=== PATIENT | female | born 1955 | race Caucasian/White ===

== ENCOUNTER 2020-04-29 15:47 | Emergency (ER) | payer BC, OTHER ==
[~2020-04-29] VITALS: Ht 160 cm; Wt 65.1 kg
[~2020-04-29 15:47] MED LIST: ACET65TA; ALBU17IN2; ALLE25CA; COUM1TAB18; DARV100T10; MELOPOW; PERC5TAB8; PROZ40CA; SIMV40TA2; ZETI10TA; ZOCO20TA
[2020-04-29] MEDS ORDERED: ASPI81CH33 PO (15:58)
[2020-04-29] MEDS ORDERED: ALEV220T22 PO (15:58)
[2020-04-29] MEDS ORDERED: BENA25CA4 PO (15:58)
[2020-04-29] MEDS ORDERED: diazePAM 5MG TABLET PO ONE (17:15)
[2020-04-29] MEDS ORDERED: LIDOCAINE 4% CREAM 5GM (LMX4) TOP ONE (17:15)
[2020-04-29] MEDS ORDERED: KETOROLAC 60MG 2ML VIAL IM ONE (17:45)
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
[2020-04-29] MEDS ORDERED: ROBA750T4 PO (18:54)
[2020-04-29] MEDS ORDERED: ANEC4CRE3 TOP (18:54)
[2020-04-29 19:05] VITALS: BP 157/86
== END 2020-04-29 19:08 | disposition home or self-care (01) ==
LOC: M ED 15:47
DX: S16.1XXA Strain of muscle, fascia and tendon at neck level, initial encounter (principal); V49.40XA Driver injured in collision with unspecified motor vehicles in traffic accident, initial encounter; Y92.9 Unspecified place or not applicable; Y93.9 Activity, unspecified; Y99.9 Unspecified external cause status; E78.5 Hyperlipidemia, unspecified; M43.12 Spondylolisthesis, cervical region; M48.061 Spinal stenosis, lumbar region without neurogenic claudication; J45.909 Unspecified asthma, uncomplicated; Z88.1 Allergy status to other antibiotic agents; Z88.2 Allergy status to sulfonamides; Z88.6 Allergy status to analgesic agent
CPT/HCPCS: 70450; 72125; 72128; 72131; 96372; 99283; J1885

== ENCOUNTER 2023-12-27 16:08 | Emergency (ER) | payer MEDICARE, OTHER ==
[~2023-12-27] VITALS: Ht 160 cm; Wt 63.6 kg
[~2023-12-27 16:08] MED LIST changes: +ALEV220T22 PO; +ANEC4CRE3 TOP; +ASPI81CH33 PO; +BENA25CA4 PO; +ROBA750T4 PO
[2023-12-27] MEDS ORDERED: MELO7.5T35 PO (19:20)
[2023-12-27] MEDS: traMADol 50 MG TAB PO ONE (19:29)
[2023-12-27 19:30] VITALS: BP 157/83; TEMP 98.4; O2SAT 98
== END 2023-12-27 19:32 | disposition home or self-care (01) ==
LOC: M ED 16:08
DX: M17.11 Unilateral primary osteoarthritis, right knee (principal); Z88.2 Allergy status to sulfonamides; Z88.8 Allergy status to other drugs, medicaments and biological substances; Z79.1 Long term (current) use of non-steroidal anti-inflammatories (NSAID); Z79.899 Other long term (current) drug therapy

== ENCOUNTER 2024-01-17 08:48 | Emergency (ER) | payer MEDICARE ==
[~2024-01-17] VITALS: Ht 160 cm; Wt 63.8 kg
[~2024-01-17 08:48] MED LIST changes: +MELO7.5T35 PO
[2024-01-17 10:22] LABS: BASO % 0.2 % (0.0-1.0); HEMATOCRIT 39.7 % (36.0-47.0); HEMOGLOBIN 14.1 g/dl (12.0-15.5); LYMPH # 1.6 10^3/uL (1.5-5.0); LYMPH % 12.9 % (24.0-44.0); MEAN CORPUSCULAR HEMOGLOBIN 31.9 pg (27.0-33.0); MEAN CORPUSCULAR HGB CONC 35.5 g/dl (32.0-36.5); MEAN CORPUSCULAR VOLUME 89.8 fl (80.0-96.0); MONO # 1.7 10^3/uL (0.0-0.8); MONO % 13.5 % (2.0-8.0); NEUTROPHILS % 72.8 % (36.0-66.0); PLATELET COUNT, AUTOMATED 240 10^3/uL (150-450); RED BLOOD COUNT 4.42 10^6/uL (4.00-5.40); WHITE BLOOD COUNT 12.4 10^3/uL (4.0-10.0)
[2024-01-17 10:37] LABS: INR 1.18; PARTIAL THROMBOPLASTIN TIME 28.2 SECONDS (24.8-34.2); PROTHROMBIN TIME 14.7 SECONDS (12.5-14.5)
[2024-01-17] MEDS ORDERED: ISOVUE-370 76% 100ML VIAL As Ordered ONE (10:39)
[2024-01-17] MEDS ORDERED: LIDO1CRE2 TOP (10:40)
[2024-01-17] MEDS ORDERED: ASPI81TA26 PO (10:40)
[2024-01-17] MEDS ORDERED: TUMERIC (10:40)
[2024-01-17] MEDS ORDERED: CRAN500C11 PO (10:40)
[2024-01-17] MEDS ORDERED: MULTTAB61 PO (10:40)
[2024-01-17] MEDS ORDERED: TUME1CAP PO (10:41)
[2024-01-17 10:44] LABS: LIPASE 31 U/L (12-53)
[2024-01-17] MEDS ORDERED: HOME MED LIST COMPLETE! XX SCH (10:45)
[2024-01-17 10:46] LABS: ALBUMIN 3.1 G/DL (3.2-5.2); ALKALINE PHOSPHATASE 103 U/L (46-116); ALT/SGPT 21 U/L (7.0-40); AST/SGOT 26 U/L (<34); BILIRUBIN,DIRECT 0.2 MG/DL (<0.4); BILIRUBIN,TOTAL 0.4 MG/DL (0.3-1.2); BLOOD UREA NITROGEN 15 MG/DL (9-23); CALCIUM LEVEL 8.8 MG/DL (8.3-10.6); CARBON DIOXIDE LEVEL 23 MMOL/L (20-31); CHLORIDE LEVEL 102 MMOL/L (98-107); CK-MB VALUE MASS < 1.0 NG/ML (<3.6); CREATININE FOR GFR 0.74 MG/DL (0.55-1.30); GLOMERULAR FILTRATION RATE > 60.0 (>45); GLUCOSE, FASTING 104 MG/DL (74-106); POTASSIUM SERUM 3.6 MMOL/L (3.5-5.1); SODIUM LEVEL 133 MMOL/L (136-145); TOTAL PROTEIN 6.9 G/DL (5.7-8.2)
[2024-01-17 10:48] LABS: THYROID STIMULATING HORMONE 1.263 uIU/ML (0.55-4.78)
[2024-01-17 10:52] LABS: CPK CREATINE PHOSPHOKINASE 81 U/L (34-145); MB/CK RELATIVE INDEX 1.23 (< OR =4)
[2024-01-17] MEDS: NS 1,000 ML IV ONE (11:25)
[2024-01-17 11:36] LABS: CK-MB VALUE MASS < 1.0 NG/ML (<3.6)
[2024-01-17 11:43] LABS: CPK CREATINE PHOSPHOKINASE 84 U/L (34-145); MB/CK RELATIVE INDEX 1.19 (< OR =4)
[2024-01-17] MEDS: IBUPROFEN 600MG TAB PO ONE (12:57)
[2024-01-17] MEDS: CIPROFLOXACIN 400 MG in IV 1 EA IV ONE (12:57)
[2024-01-17] MEDS: metroNIDAZOLE 500 MG in IV 1 EA IV ONE (13:15)
[2024-01-17 13:46] LABS: RSV AMPLIFICATION NEGATIVE (NEGATIVE)
[2024-01-17] MEDS: NS 1,000 ML IV STA (14:32)
[2024-01-17] MEDS ORDERED: METR-265 PO (15:29)
[2024-01-17] MEDS ORDERED: CIPR-249 PO (15:29)
[2024-01-17 15:45] VITALS: BP 138/68; TEMP 99.6; O2SAT 97
== END 2024-01-17 15:50 | disposition home or self-care (01) ==
LOC: M ED 08:48
DX: R00.2 Palpitations (principal); K57.92 Diverticulitis of intestine, part unspecified, without perforation or abscess without bleeding; N39.0 Urinary tract infection, site not specified; F32.A Depression, unspecified; Z88.2 Allergy status to sulfonamides; Z88.8 Allergy status to other drugs, medicaments and biological substances; Z79.1 Long term (current) use of non-steroidal anti-inflammatories (NSAID); Z79.2 Long term (current) use of antibiotics; Z79.810 Long term (current) use of selective estrogen receptor modulators (SERMs); Z79.899 Other long term (current) drug therapy
CPT/HCPCS: 71045; 71275; 74177; 80047; 80048; 80076; 81001; 82550; 82553; 83605; 83690; 84439; 84443; 84484; 85025; 85610; 85730; 87088; 87186; 87631; 93005; 93041; 94760; 96360; 96361; 96365; 96366; 99285; J0744; J1836; Q9967

== ENCOUNTER → 2024-04-13 | Outpatient (REF) | payer MEDICARE ==
[~2024-04-13] MED LIST changes: +ASPI81TA26 PO; +CIPR-249 PO; +CVS500CA5 PO; +LIDO4CRE12 TOP; +METR-265 PO; +MULTTAB61 PO; +TUME1CAP PO; +TUMERIC
[2024-04-13 18:46] LABS: FERRITIN 35.4 NG/ML (7.3-270.7)
[2024-04-13 18:47] LABS: RHEUMATOID FACTOR QUANT 7.9 IU/ML (<14)
[2024-04-13 18:48] LABS: PERCENT SATURATION 19.1 % (13.2-45.0)
== END ==
LOC: M LAB REF 17:31
PROVIDERS: ATTEND Internal Medicine
DX: R23.1 Pallor (principal); M25.50 Pain in unspecified joint

== ENCOUNTER → 2024-04-16 | Outpatient (CLI) | payer MEDICARE | LOC: M WUC 12:03 | PROVIDERS: ATTEND Internal Medicine | DX: M19.012 Primary osteoarthritis, left shoulder (principal); M25.512 Pain in left shoulder ==

== ENCOUNTER 2024-04-21 17:23 | Emergency (ER) | payer MEDICARE ==
[~2024-04-21] VITALS: Ht 160 cm; Wt 65.1 kg
[2024-04-21] MEDS ORDERED: OSTE1TAB2 PO (17:38)
[2024-04-21] MEDS ORDERED: ZINC220CA PO (17:38)
[2024-04-21] MEDS ORDERED: MELO7.5T35 (17:38)
[2024-04-21] MEDS ORDERED: FLUTISP (17:38)
[2024-04-21] MEDS ORDERED: PRED10TA2 (17:38)
[2024-04-21] MEDS ORDERED: METH-1165 PO (20:29)
[2024-04-21] MEDS ORDERED: IBUP-1022 PO (20:29)
[2024-04-21] MEDS: IBUPROFEN 600MG TAB PO ONE (20:40)
[2024-04-21] MEDS: methocarbamoL 750 MG TAB PO ONE (20:40)
[2024-04-21 20:43] VITALS: BP 136/68; TEMP 98; O2SAT 100
== END 2024-04-21 20:46 | disposition home or self-care (01) ==
LOC: M ED 17:23
DX: S39.012A Strain of muscle, fascia and tendon of lower back, initial encounter (principal); M51.360 Other intervertebral disc degeneration, lumbar region with discogenic back pain only; Y92.9 Unspecified place or not applicable; Y93.9 Activity, unspecified; Y99.9 Unspecified external cause status; Z88.2 Allergy status to sulfonamides; Z88.8 Allergy status to other drugs, medicaments and biological substances; Z79.1 Long term (current) use of non-steroidal anti-inflammatories (NSAID); Z79.52 Long term (current) use of systemic steroids; Z79.810 Long term (current) use of selective estrogen receptor modulators (SERMs); Z79.899 Other long term (current) drug therapy

== ENCOUNTER 2024-07-03 15:40 | Emergency (ER) | payer MEDICARE ==
[~2024-07-03] VITALS: Ht 160 cm; Wt 66.2 kg
[~2024-07-03 15:40] MED LIST changes: +FLUTISP; +IBUP-1022 PO; +MELO7.5T35; +METH-1165 PO; +OSTE1TAB2 PO; +PRED10TA2; +ZINC220CA PO
[2024-07-03 19:22] LABS: BASO # 0.1 10^3/uL (0.0-0.2); BASO % 0.6 % (0.0-1.0); EOS # 0.1 10^3/uL (0.0-0.5); EOS % 1.3 % (0.0-3.0); HEMOGLOBIN 14.4 g/dl (12.0-15.5); LYMPH # 3.5 10^3/uL (1.5-5.0); LYMPH % 32.4 % (24.0-44.0); MEAN CORPUSCULAR HEMOGLOBIN 30.9 pg (27.0-33.0); MEAN CORPUSCULAR HGB CONC 33.5 g/dl (32.0-36.5); MEAN CORPUSCULAR VOLUME 92.3 fl (80.0-96.0); MONO # 0.7 10^3/uL (0.0-0.8); MONO % 6.8 % (2.0-8.0); NEUTROPHILS # 6.3 10^3/uL (1.5-8.5); NEUTROPHILS % 58.6 % (36.0-66.0); PLATELET COUNT, AUTOMATED 333 10^3/uL (150-450); RED BLOOD COUNT 4.66 10^6/uL (4.00-5.40); WHITE BLOOD COUNT 10.8 10^3/uL (4.0-10.0)
[2024-07-03 19:22] LABS: KETONE, URINE AUTO RFX NEGATIVE (NEGATIVE); NITRITE, URINE AUTO RFX NEGATIVE (NEGATIVE); RBC, URINE AUTO RFX 0 /HPF (0-3); SQUAM EPITHELIAL CELL UR AURFX 2 /HPF (0-6); WBC, URINE AUTO RFX 3 /HPF (0-3)
[2024-07-03 19:31] LABS: LEUKOCYTE ESTERASE UR AUTO RFX TRACE (NEGATIVE)
[2024-07-03] MEDS ORDERED: ISOVUE-370 76% 100ML VIAL As Ordered ONE (19:31)
[2024-07-03 19:46] LABS: ALBUMIN 4.3 G/DL (3.2-5.2); BILIRUBIN,DIRECT 0.1 MG/DL (<0.4); BILIRUBIN,TOTAL 0.4 MG/DL (0.3-1.2); TOTAL PROTEIN 7.8 G/DL (5.7-8.2)
[2024-07-03 20:53] VITALS: BP 169/80; TEMP 98.2; O2SAT 98
== END 2024-07-03 22:03 | disposition home or self-care (01) ==
LOC: M ED 15:40
DX: M54.6 Pain in thoracic spine (principal); Z88.1 Allergy status to other antibiotic agents; Z88.2 Allergy status to sulfonamides; Z79.1 Long term (current) use of non-steroidal anti-inflammatories (NSAID); Z79.810 Long term (current) use of selective estrogen receptor modulators (SERMs); Z79.899 Other long term (current) drug therapy
CPT/HCPCS: 36415; 74177; 80047; 80076; 81001; 83690; 85025; 87086; 99284; Q9967

== ENCOUNTER 2024-07-30 10:56 | Day surgery (SDC) | payer MEDICARE ==
[~2024-07-30] VITALS: Ht 160 cm; Wt 64.0 kg
[~2024-07-30 10:56] MED LIST changes: +CHEL50TA3 PO; +DIPH-435 PO; -MELO7.5T35; +TURM500C PO; +VITA200031 PO
[2024-07-30] MEDS ORDERED: LIDOCAINE 2% 100MG/5ML SDV (FOR ANES.) As Ordered ONE (13:25)
[2024-07-30] MEDS ORDERED: propofoL 200 MG/20 ML VIAL As Ordered ONE (13:25)
[2024-07-30 14:15] VITALS: BP 128/86; O2SAT 97
== END 2024-07-30 14:22 | disposition home or self-care (01) ==
LOC: M OPP 10:56
PROVIDERS: ATTEND Surgery
DX: Z12.11 Encounter for screening for malignant neoplasm of colon (principal); K57.30 Diverticulosis of large intestine without perforation or abscess without bleeding; K64.0 First degree hemorrhoids; Z88.2 Allergy status to sulfonamides; Z88.6 Allergy status to analgesic agent; Z79.51 Long term (current) use of inhaled steroids; Z79.899 Other long term (current) drug therapy; J45.909 Unspecified asthma, uncomplicated

== ENCOUNTER 2025-02-15 12:01 | Emergency (ER) | payer MEDICARE ==
[~2025-02-15] VITALS: Ht 160 cm; Wt 67.2 kg
[~2025-02-15 12:01] MED LIST changes: -IBUP-1022 PO; +IBUP600T42 PO
[2025-02-15 12:02] VITALS: TEMP 97.8
[2025-02-15 16:25] VITALS: BP 162/90; O2SAT 97
== END 2025-02-15 16:25 | disposition home or self-care (01) ==
LOC: M ED 12:01
DX: M25.561 Pain in right knee (principal); M71.21 Synovial cyst of popliteal space [Baker], right knee; E78.5 Hyperlipidemia, unspecified; Z88.2 Allergy status to sulfonamides; Z88.6 Allergy status to analgesic agent; Z79.899 Other long term (current) drug therapy; Z79.810 Long term (current) use of selective estrogen receptor modulators (SERMs)